=== PATIENT | female | born 1970 | race Caucasian/White ===

== ENCOUNTER → 2017-01-01 | Outpatient (CLI) | payer BC ==
[~2017-01-01] MED LIST: NLV/20 PO
[2017-01-01 14:11] VITALS: BP 124/79; PULSE 60; TEMP 36.5; O2SAT 96
--- NOTE | 2017-01-01 15:51 | Radiation Oncology Follow-Up ---
Radiation Oncology Follow-Up Date of Visit Jan 01, 2017. Reason For Visit Annual follow-up Radiation Completion Date finished 05-19-2015 Diagnosis (1) Breast cancer of lower-outer quadrant of left female breast Status: Resolved Onset Date: 01/05/2015 Histology Subtype: ductal Stage: l Permanent Comment: Abnormal left breast mammogram Status post biopsy 01/05/2015 revealing invasive ductal carcinoma Estrogen receptor positive, progesterone receptor positive, HER-2/etelvina negative Status post lumpectomy and sentinel lymph node biopsy 01/21/2015 Pathologic stage [id number] Oncotype DX score of 24 Status post completion of radiation therapy 05/19/2015 received 6120 cGy Last Edited By: Liudmila Cartagena on Jun 09, 2015 10:37 History of Present Illness Ms. Grier is a 45-year-old female without a family history of breast cancer. She has undergone screening mammograms since 2010. On 12/24/2014 a bilateral digital screening mammogram was performed. In the posterior third of the left breast within the retro-parenchymal fat and interval development of a 0.8 cm partially circumscribed nodule was appreciated. Along the anterior margin of the interval nodule are indeterminate microcalcifications spanning approximately 0.5 cm of breast tissue. No abnormalities are noted in the right breast and no axillary adenopathy was appreciated. Additional images were recommended. On 12/30/2014 the patient underwent a unilateral left digital diagnostic mammogram and targeted left ultrasound. Spot magnification views of the left breast demonstrated an irregular mass with indistinct and spiculated margins in the left lower outer quadrant posteriorly. This lesion measured approximately 1.2 x 2.0 cm mammographically. Associated punctate calcifications are seen within the mass. In addition a new oval partially circumscribed and partially obscured 1.4 cm mass was noted in the left breast at approximately 8 to 9:00 which appears stable compared to the previous study of June 2013 and June 2011. Targeted ultrasound was performed of the left lower outer quadrant. In the left breast at the 4:00 proximally 8 cm in the nipple an irregular bilobed mass versus 2 adjacent masses are noted with total extent measuring 1.6 cm in size. Targeted ultrasound of the left axilla demonstrates morphologically normal axillary lymph nodes. Targeted ultrasound of the left breast at the 8 to 9 o'clock position shows normal tissue with no mass. This was given a BI-RADS Category 5 highly suggestive of malignancy and a biopsy was recommended. On 01/05/2015 patient underwent an ultrasound core biopsy of the left breast at the 4 o'clock position. This revealed an invasive ductal carcinoma Suhail grade 2 of 3 with no lymphovascular or perineural invasion identified. Estrogen receptors were positive (99%, strong intensity, H score equal to 297). Progesterone receptor positive (4%, week intensity, H score equals 4) HER-2/etelvina overexpression is negative. The Ki-67 proliferation index is 8% (low) the tissue was evaluated by FISH analysis and was negative for HER-2/etelvina overexpression. Case: 15-S. Patient was seen by Dr. Javier Moody for discussion of surgical treatment options. The patient opted to proceed with a breast conserving therapy. Therefore on 01/24/2015 patient underwent a left breast partial mastectomy and sentinel lymph node biopsy. This confirmed an invasive ductal carcinoma, Kelly grade 2 of 3 measuring 2.0 cm. DCIS was present high-grade, solid type with comedonecrosis. No extensive DCIS or LCIS was identified. The initial margins revealed invasive carcinoma within 1 mm of the cauterized edge of the medial margin on the main specimen. No tumor is seen at the final inked medial margin on the main specimen. The invasive carcinoma is 0.7 cm in the lateral margin on the main specimen with the remaining margins all negative. Additional left lateral margin and left medial margins were taken and both were benign. A single sentinel node was identified and was negative on H&E and hawk keratin immunostain. The final stage was therefore pT1c pNo(i-) ER positive OR positive HER-2/etelvina negative. Case: . The patient was seen by Dr. Titi Cook for discussion of the role of adjuvant therapy. He recommended and ordered Oncotype DX. This was performed and the recurrence score result was 24 placing her in the middle of the intermediate risk category. Patient also underwent genetic testing and was BRCA1 and BRCA2 negative with no mutation detected. With this information the patient is returning to see Dr. Cook today. He will discuss these findings and will make a recommendation as to the potential role of systemic chemotherapy. I told the patient that if she is to receive systemic chemotherapy that we would hold radiation and start after the completion of the chemotherapy. If either he does not recommend systemic chemotherapy or the patient chooses not to receive systemic chemotherapy we would then be ready to start at any time. The patient presented today to discuss the role of radiation. Her Oncotype DX score was 24. She did not require chemotherapy. She returned to our office to undergo radiation therapy. Interim History She has been doing well over this past year. She does have occasional soreness in the breast. She describes this as a discomfort. She does not really given a pain level. It is unrelated to any particular type activities. It mainly will occur in the inframammary fold. She is careful not to wear a bra with underwire. She is up-to-date on mammography. She had a unilateral left breast digital diagnostic mammogram 07/13/2016. She is scheduled for bilateral mammography in January. She continues on tamoxifen and denies side effects. Allergies Coded Allergies: Sulfa Antibiotics (Verified Allergy, Unknown, rash, 06/07/16) NSAIDs (Verified Adverse Reaction, Unknown, BLEEDING ULCERS, 06/07/16) Home Medications Scheduled Tamoxifen Citrate (Tamoxifen Citrate), 20 MG PO DAILY Review of Systems Gastrointestinal: Symptoms: WNL Oral: Symptoms: No Problems Respiratory: Symptoms: WNL Urinary: Symptoms: WNL Skin: Symptoms: No Problems Breast: Right Upper Arm Measurement: 37.0 Right Mid Arm Measurement: 31.5 Right Wrist Measurement: 18.5 Left Upper Arm Measurement: 38.0 Left Mid Arm Measurement: 32.0 Left Wrist Measurement: 18.4 Arm Dominence: Right Patient Cosmetic Evaluation: Excellent Staff Cosmetic Evalaluation: Excellent Physical Exam Vital Signs Date Time Temp Pulse Resp B/P Pulse Ox O2 Delivery O2 Flow Rate FiO2 01/01/17 14:11 36.5 60 20 124/79 96 Pain: Side: Bilateral Pain Location: None Patient Pain Scale: 0 - 10 Initial Pain Intensity: 0.0 Additional Comments: Occaional twinges in left breast Fatigue: None General Appearance: no apparent distress Eyes: normal inspection, EOMI ENT: normal ENT inspection, hearing grossly normal Neck: no adenopathy, thyroid normal Respiratory/Chest: lungs clear, no respiratory distress, no accessory muscle use Breast: Breast examination reveals well-healed incisions of the left breast. There are no masses or tenderness and no axillary adenopathy. There are no skin retractions or nipple changes. Using the [place] score cosmesis she has an excellent outcome. The right breast showed no masses or tenderness no axillary adenopathy. Cardiovascular: regular rate, rhythm, no gallop, no murmur Extremities: no pedal edema Neurologic/Psychiatric: no motor/sensory deficits, alert, normal mood/affect Skin: warm/dry Lymphatic: no adenopathy Additional Studies UNILATERAL LEFT DIGITAL DIAGNOSTIC MAMMOGRAM 3D/2D WITH CAD AND TARGETED LEFT ULTRASOUND: 07/13/2016 CLINICAL HISTORY: History of left breast cancer status post lumpectomy, here for short interval follow-up. The patient reports that she has had intermittent pain in the left inner breast since her surgery, and at times she feels a possible lump in the region. Comparison is made to exams dated: 12/30/2015 mammogram, 12/24/2014 mammogram, mammogram, 12/30/2014 mammogram, 01/05/2015 mammogram - [facility], and 05/30/2011 mammogram - [facility]. FINDINGS: Left CC and MLO 2-D and tomosynthesis images and spot magnification left CC and LM views were obtained. There are scattered areas of fibroglandular density in the left breast. Current study was also evaluated with a Computer Aided Detection (CAD) system. There are stable postsurgical changes in the left upper outer quadrant from lumpectomy, including stable density, architectural distortion, and surgical clips at the lumpectomy bed. Spot magnification views of the lumpectomy bed demonstrate no suspicious masses or clusters of calcifications. The remainder of the left breast is stable compared to prior exams, without suspicious masses , calcifications, or areas of architectural distortion noted. 12 mm mass in the left anterior medial breast at approximately 9:00 is stable dating back to at least the 2012 exam. Targeted ultrasound was performed of the area of the possible lump and intermittent pain pointed out by the patient, involving the left lower inner quadrant but centered at approximately 7 to 8:00, 12 cm from the nipple. Sonographically normal tissue is seen in this region, without evidence of mass or other suspicious sonographic abnormality. IMPRESSION: ACR-BI-RADS CATEGORY 3: PROBABLY BENIGN, TARGETED ULTRASOUND ACR BI- RADS CATEGORY 1: NEGATIVE Stable post surgical changes in the left breast from prior lumpectomy, without mammographic evidence of malignancy in the left breast. No mammographic or sonographic abnormality noted at the site of the intermittent pain and possible lump in the left lower inner quadrant. Recommend bilateral diagnostic mammograms in 6 months, to reevaluate the left breast postsurgical changes and for routine mammography of the right breast. Also recommend clinical follow-up for left breast pain and lump. The patient has been verbally notified of the results. Approximately 10% of breast cancers are not detected with mammography. A negative mammographic report should not delay biopsy if a clinically suggestive mass is present. Haylee Valencia M.D. ah/:07/13/2016 11:48:41 Sandwich Artist: Chel WISE)(Raina), [facility] letter sent: Personal History 3 OVERALL STUDY BIRADS: 3 Probably benign Dictated by: Haylee Valencia MD Signed by: Haylee Valencia MD Assessment & Plan Plan: Continue with scheduled mammography. She'll have a bilateral digital diagnostic mammogram in January. I reviewed with her we will follow the recommendations of the radiologist as to when the next mammogram will be. Continue follow-up with Dr. Moody. We discussed the mild discomfort of the breast. His health this will steadily improve and resolve over time. I did recommend ibuprofen should this become a more persistent and uncomfortable problem. She should also call our office should she have any questions or concerns. Continue regular follow-up with her primary care physician. She also sees Dr. Cook in medical oncology. We asked her to return to our office in 1 year. Total Time In Follow-Up I spent 20 minutes speaking to the patient performing examination. I spent 15 minutes reviewing information and completing this note. Copy To Javier Moody M.D.; Funmilayo Holloway M.D.; Titi Cook M.D.
== END | disposition home or self-care (01) ==
LOC: C.ONC 13:42
PROVIDERS: ATTEND Radiology Radiation Oncology
DX: Z08 Encounter for follow-up examination after completed treatment for malignant neoplasm (principal); Z92.3 Personal history of irradiation; Z85.3 Personal history of malignant neoplasm of breast

== ENCOUNTER → 2017-01-15 | Outpatient (CLI) | payer BC ==
--- NOTE | 2017-01-15 13:03 | MAMMOGRAPHY REPORT ---
BILATERAL DIGITAL DIAGNOSTIC MAMMOGRAM TOMOSYNTHESIS WITH CAD AND TARGETED RIGHT ULTRASOUND: 01/15/20 17 CLINICAL HISTORY: 46-year-old woman with a personal history of left breast cancer diagnosed in 2014, status post lumpectomy and radiation. She presents for annual bilateral screening mammogra phy. TECHNIQUE: Bilateral CC and MLO to the digital and tomosynthesis images, spot magnification CC and M L views of each breast were obtained. Current study was also evaluated with a Computer Aided Detect ion (CAD) system. COMPARISON: Comparison is made to exams dated: 07/13/2016 ultrasound, 07/13/2016 mammogram, 12/30/2015 mammogram, 08/26/2015 mammogram, and 01/05/2015 ultrasound [facility]. BREAST COMPOSITION: There are scattered areas of fibroglandular density in both breasts. FINDINGS: There is expected architectural distortion and associated surgical clips in the upper out er posterior left breast, at the site of prior lumpectomy. There is stable focal asymmetry in the l ower inner anterior left breast, which appears similar on all prior mammograms dating back to at [facility] 05/30/2011, therefore likely benign. There are a few scattered benign round calcifications withi n the left breast. No new suspicious mass, unexpected architectural distortion or suspicious microc alcifications are identified on the left. In the middle one third of the right breast, along the posterior nipple line on the cc view, there i s a newly visualized lobulated oval mass measuring 7.5 x 4.5 mm. This is less conspicuous on the ML O view. Further characterization with ultrasound was performed. There is also a small faint cluste red microcalcifications in the upper outer middle one third of the right breast for which additional spot magnification views were obtained. On the spot magnification views this 2 mm cluster of micro calcifications appears amorphous in the CC projection and may possibly be forming a rim on the MLO v iew. Nevertheless given the interval development this is indeterminate, warranting further evaluati on with tissue sampling, given the personal history of premenopausal left breast cancer. Real-time high-resolution ultrasound was performed in the 12:00 right breast. In the 12:00 axis, 3 cm from the nipple, there is a 7.9 x 4.4 by approximately 4.0 mm multilobulated cystic appearing mas s with thin internal nonvascular septations. This most likely represents a small cyst cluster or co mplicated cyst. This correlates well with the newly visualized mammographic mass and is probably be nign although a repeat targeted ultrasound is recommended to ensure stability in 6 months and exclud e the possibility of a solid and cystic mass. IMPRESSION: ACR BI-RADS CATEGORY 4B: INTERMEDIATE SUSPICION FOR MALIGNANCY, TARGETED ULTRASOUND ACR BI-RADS CATEGORY 4B: INTERMEDIATE SUSPICION FOR MALIGNANCY 1. Right breast stereotactic guided biopsy is recommended for a new 2 mm cluster of amorphous micro calcifications in the upper outer middle one third of the breast. 2. A short interval follow-up diagnostic right mammogram and repeat targeted ultrasound in the 12:0 0 axis is recommended to ensure stability of a probable complicated cyst versus small cluster of cys ts. 3. Stable mammographic appearance of the left breast, without mammographic evidence of malignancy. Pending benign pathology results in the right breast, can follow-up the left breast in 12 months. These results and recommendations were discussed with the patient at the time of the exam. Approximately 10% of breast cancers are not detected with mammography. A negative mammographic repor t should not delay biopsy if a clinically suggestive mass is present. Patricia Lucero M.D. ay/:01/15/2017 12:39:14 Be[employer]attle Farm Worker: Silvia JUAREZ(Marianela)(Raina), [facility] letter sent: Abnormal 4/5 BI-RADS Code: ACR BI-RADS Category 4B: Intermediate Suspicion For Malignancy Ultrasound BI-RADS: AC R BI-RADS Category 4B: Intermediate Suspicion For Malignancy
== END | disposition home or self-care (01) ==
LOC: C.MAMM 08:54
PROVIDERS: ATTEND Surgery
DX: Z08 Encounter for follow-up examination after completed treatment for malignant neoplasm (principal); Z85.3 Personal history of malignant neoplasm of breast; R92.0 Mammographic microcalcification found on diagnostic imaging of breast; R92.8 Other abnormal and inconclusive findings on diagnostic imaging of breast

== ENCOUNTER → 2017-01-21 | Outpatient (CLI) | payer BC ==
--- NOTE | 2017-01-21 13:31 | Discharge Instructions ---
Discharge Instructions Procedure Procedure Date: Jan 21, 2017. Reason for visit: Right Calcifications. Discharge Discharge Date: Jan 21, 2017. Discharge Diagnosis: post right breast stereotactic guided biopsy Instructions Activity Recommendations: Additional Limitations (see below) Return to School/Work: no limitations Recommended Home Diet: No Limitations Provider Instructions: ACTIVITY RECOMMENDATIONS: * No lifting, pushing, pulling or exercising the affected side for three days. RETURN TO SCHOOL/WORK: * You may return to work/school after the procedure, but do not perform any strenuous activities for 24 to 48 hours. MEDICATIONS: * Tylenol (two 325 mg) every four to six hours if needed for mild pain (if not allergic to Tylenol). DIET: * Resume previous diet. SPECIAL CARE INSTRUCTIONS: * Keep biopsy site dry for 24 hours. May shower after 24 hours, but do not soak (bathe) incision. * May remove Tegaderm (plastic patch) tomorrow AFTER showering. * Leave the steri-strips on for one week. Allow the steri-strips to fall off by themselves. If not off after one week, you may remove them. You may place a Bandaid crosswise over the strips, if desired. * Apply ice 10 minutes on and 10 minutes off as needed. * Wear a bra at bedtime to sleep more comfortably for 2-3 days. * Your referring physician should have the results after approximately 5 to 7 business days. * Call for unusual bleeding, fever, drainage, etc or if you have any questions call [phone] during normal business hours or after hours call Dr Lucero, . FOLLOW UP VISIT: Follow-up with Referring Physician as scheduled. Allergies Coded Allergies: Sulfa Antibiotics (Verified Allergy, Unknown, rash, 06/07/16) NSAIDs (Verified Adverse Reaction, Unknown, BLEEDING ULCERS, 06/07/16) Dio Vivas Recommendations: Call your doctor if: * Temperature above 101 degrees * Pain not relieved by pain medicine ordered * There is increased drainage or redness from any incision * You have any unanswered questions or concerns. Your Doctors Instructions noted above were prepared by provider Patricia Lucero. Patient Signature Section: Patient Instructions Signature Page Claudette Grier Patient (or Guardian) Signature/Date: I have read and understand the instructions given to me by my caregivers. Caregiver/RN/Doctor Signature/Date: The above-named patient and/or guardian has received patient instructions on this date. + Original Patient Signature Page (only) stays with chart. Please make copy for patient.
--- NOTE | 2017-01-21 14:38 | MAMMOGRAPHY REPORT ---
UNILATERAL RIGHT DIGITAL DIAGNOSTIC MAMMOGRAM: 01/21/2017 CLINICAL HISTORY: Status post right breast stereotactic biopsy. Please refer to the report from right breast stereotactic biopsy performed at the same time for full detail. IMPRESSION: POST PROCEDURE IMAGING FOR MARKER PLACEMENT Please refer to the report from right breast stereotactic biopsy performed at the same time for full detail. Pending benign pathology results, a follow-up diagnostic mammogram and ultrasound of the right breas t is recommended to ensure stability in 6 months of a probable cyst cluster in the 12:00 axis. Approximately 10% of breast cancers are not detected with mammography. A negative mammographic repor t should not delay biopsy if a clinically suggestive mass is present. Patricia Lucero M.D. ay/:01/21/2017 13:37:42 Attending Technologist: Luz Maria Smith RT(R)(M), [facility] [employer] Fermentation Operator: Jacklyn Anglin RT(R)(M), [facility] BI-RADS Code: Post Procedure Imaging For Marker Placement
--- NOTE | 2017-01-21 14:38 | MAMMOGRAPHY REPORT ---
STEREOTACTIC GUIDED BIOPSY RIGHT BREAST: 01/21/2017 CLINICAL HISTORY: Microcalcifications right breast. COMPARISON: Comparison is made to exams dated: 01/15/2017 mammogram, 01/15/2017 ultrasound, 12/30/2015 mammogram, and 12/24/2014 mammogram - [facility]. PATIENT CONSENT: After explaining the risks, benefits and alternatives of the procedure to the patie nt, informed consent was obtained both verbally and in writing. Specific risks include: Bleeding, i nfection, puncture of adjacent structure, nontarget biopsy, sampling error, metal allergy and medica tion reaction. PROCEDURE DESCRIPTION: A time-out was performed and the right breast was confirmed as the site of bi opsy. The patient was placed prone on the stereotactic biopsy table and the breast was placed in lat eral compression. A assistant project manager image was obtained that demonstrated the clustered microcalcifications in question. They are amenable to sterotactic biopsy. Then +15 and -15 stereo pair images were obtai gregor. The calcifications were targeted utilizing the coordinates obtained by the computer. The skin was prepped with Betadine. 1% Lidocaine with and without epinipherine was administered as local anes thesia. A small skin incision was made. Through the incision, the needle was inserted to the depth determined by the computer. 10 samples were obtained using a [employer] Tek 9-gauge vacuum-assisted bio psy device. The specimen radiograph demonstrated several sales representative metals microcalcifications, therefo re, a metallic marker was placed at the biopsy site. There was no immediate complication. Hemostasis was achieved after several minutes of manual compression. The samples were sent to pathology in 2 appropriately labeled containers. The specimen containing the majority of the microcalcifications w ere placed into a container labeled with calcifications and the remainder of the adjacent tissue was placed into a container labeled without calcifications. All of the samples were obtained from the same single biopsy site. Postprocedure CC and ML views of the right breast demonstrate a new metallic biopsy marker and no si gnificant hematoma in the upper outer middle one third of the breast (approximate 9:00 axis). IMPRESSION: STEREOTACTIC GUIDED BIOPSY Stereotactic right breast stereotactic guided biopsy of clustered microcalcifications in the upper o uter middle one third of the breast, with biopsy marker placed at the site. Pending benign pathology results, follow-up diagnostic right mammography and repeat targeted ultraso und in the 12:00 axis is recommended to ensure stability of a probable complicated cyst seen on prev ious diagnostic ultrasound dated 01/15/2017. Patricia Lucero M.D. ay/:01/21/2017 13:56:28 Attending Technologist: Luz Maria Smith RT(R)(M), [facility] Edger Hand: Jacklyn Anglin RT(R)(M), [facility]
== END | disposition home or self-care (01) ==
LOC: C.MAMM 12:34
PROVIDERS: ATTEND Surgery
DX: R92.0 Mammographic microcalcification found on diagnostic imaging of breast (principal)

== ENCOUNTER → 2017-07-23 | Outpatient (CLI) | payer BC ==
--- NOTE | 2017-07-23 16:09 | MAMMOGRAPHY REPORT ---
UNILATERAL RIGHT DIGITAL DIAGNOSTIC MAMMOGRAM TOMOSYNTHESIS WITH CAD AND TARGETED RIGHT ULTRASOUND: CLINICAL HISTORY: 47 year old woman with a personal history of left breast cancer status post breast conservation therapy presents for follow-up in the right breast for a possible common located cyst ve rsus small cluster of cysts in the 12:00 axes. She is 6 months status post benign stereotactic biops y in the right upper outer quadrant. TECHNIQUE: Right breast tomosynthesis in addition to standard 2D mammography was performed. Current maddie perez was also evaluated with a Computer Aided Detection (CAD) system. COMPARISON: Comparison is made to exams dated: 01/21/2017 mammogram, 01/21/2017 stereotactic biopsy, ultrasound, 01/15/2017 mammogram, 07/13/2016 ultrasound, and 07/13/2016 mammogram - [facility]. BREAST COMPOSITION: There are scattered areas of fibroglandular density in the right breast. FINDINGS: There is a stable dumbbell shaped metallic biopsy marker in the upper outer middle one thir d of the right breast. There is an oval lobulated mass in the 12:00 middle one third of the right br east, which measures 7.4 x 5.1 mm, and has not significantly changed comparing to the prior mammogram at which time it measured 7.5 x 4.5 mm. No new suspicious mass, architectural distortion or suspici ous microcalcifications are identified in the right breast. Repeat targeted ultrasound was performed in the 12:00 right breast, 3 cm from the nipple. A multilob ulated predominantly cystic mass is again identified either representing a complicated cyst with nonv ascular internal septations or a small cluster of cysts. It measures 4.9 x 4.5 x 7.8 mm, previously measured 7.9 x 4.4 x 4.0 mm. This has not significantly changed. Another six-month follow-up target ed ultrasound is recommended to ensure longer stability. IMPRESSION: ACR-BI-RADS CATEGORY 3: PROBABLY BENIGN, TARGETED ULTRASOUND ACR-BI-RADS CATEGORY 3: PRO BABLY BENIGN Stable mammographic appearance of the right breast including stable post biopsy changes in the upper outer quadrant, and a stable lobulated oval mass in the 12:00 axis both mammographically and sonograp hically. This could represent a complicated cyst or small cysts cluster, however given it was new on the prior exam another six-month follow-up right diagnostic mammogram including tomosynthesis images and repeat targeted ultrasound is recommended in 6 months. Annual left mammography will be due at t hat time. Approximately 10% of breast cancers are not detected with mammography. A negative mammographic report should not delay biopsy if a clinically suggestive mass is present. Patricia Lucero M.D. ay/:07/23/2017 08:54:45 Mayonnaise Mixer: Silvia JUAREZ(Marianela)(Raina), letter sent: Follow Up Recommended 3 BI-RADS Code: ACR-BI-RADS Category 3: Probably Benign Ultrasound BI-RADS: ACR-BI-RADS Category 3: Pr obably Benign
== END | disposition home or self-care (01) ==
LOC: C.MAMM 08:23
PROVIDERS: ATTEND Surgery
DX: N63 Unspecified lump in breast (principal); Z85.3 Personal history of malignant neoplasm of breast; Z08 Encounter for follow-up examination after completed treatment for malignant neoplasm

== ENCOUNTER → 2018-01-27 | Outpatient (CLI) | payer BC ==
--- NOTE | 2018-01-27 15:41 | MAMMOGRAPHY REPORT ---
BILATERAL DIGITAL DIAGNOSTIC MAMMOGRAM TOMOSYNTHESIS WITH CAD AND TARGETED RIGHT ULTRASOUND: 01/27/2018 CLINICAL HISTORY: 47-year-old woman with a personal history of left breast cancer status post breast conservation treatment, with lumpectomy performed in December 2014. She presents at time of annual b ilateral screening exam and also for a close follow-up of a benign-appearing right breast mass. TECHNIQUE: Bilateral breast tomosynthesis in addition to standard 2D mammography was performed. Curre nt study was also evaluated with a Computer Aided Detection (CAD) system. COMPARISON: Comparison is made to exams dated: 07/23/2017 ultrasound, 07/23/2017 mammogram, 01/21/2017 mammogram, 01/21/2017 stereotactic biopsy, 01/15/2017 mammogram, and 12/30/2015 mammogram - [facility]. BREAST COMPOSITION: There are scattered areas of fibroglandular density in both breasts. FINDINGS: There is expected architectural distortion and surgical clips in the upper outer posterior left breast, at the site of prior lumpectomy. A stable 13 mm focal asymmetry in the lower inner ante rior left breast has been present and appears similar dating back to at least 05/30/2011, therefore con sidered benign. There are a few scattered benign-appearing round microcalcifications in the left cooper ast. No new suspicious mass, architectural distortion or cluster of microcalcifications is seen in t he left breast. There is a stable dumbbell-shaped biopsy marker clip in the upper outer middle one third of the right breast, denoting the site of prior benign stereotactic biopsy. An oval circumscribed 8.1 x 5.1 mm m ass in the upper outer middle one third of the right breast is stable in size dating back to at least 01/15/2017. No new suspicious masses, calcifications, areas of architectural distortion or asymmetri es are seen in the right breast. Targeted ultrasound was performed in the right breast to reevaluate the probable cyst cluster identif ied on prior ultrasounds. In the 12:00 right breast, 3 cm from the nipple, a small grouping of hypoe choic to anechoic cyst is again identified, measuring 5.5 x 4.6 x 8.2 mm. Given slight differences i n measurement technique, this is unchanged dating back to at least January 15, 2017 and most likely represent a cyst cluster. Another 12 month follow-up targeted ultrasound is recommended to document at least 2 years of stability to confirm benignity. IMPRESSION: ACR-BI-RADS CATEGORY 3: PROBABLY BENIGN, TARGETED ULTRASOUND ACR-BI-RADS CATEGORY 3: PRO BABLY BENIGN 1. Stable bilateral mammograms including posttreatment changes in the left breast, postbiopsy change s in the right breast and a benign-appearing oval circumscribed 8 x 5 mm mass in the approximate 12:0 0 right breast. Another 12 month follow-up diagnostic mammogram including repeat targeted ultrasound in the right breast is recommended to ensure at least 2 years of stability to confirm benignity. An nual bilateral mammography will also be due at that time. Also consider remaining a diagnostic patie nt in the future, given the personal history of left breast cancer. These results and recommendations were discussed with the patient at the time of the exam. Approximately 10% of breast cancers are not detected with mammography. A negative mammographic report should not delay biopsy if a clinically suggestive mass is present. Patricia Lucero M.D. ay/:01/27/2018 11:26:37 Supervisor Rod Placing: Jacklyn JUAREZ(Marianela)(M), [facility] letter sent: Follow Up Recommended 3 BI-RADS Code: ACR-BI-RADS Category 3: Probably Benign Ultrasound BI-RADS: ACR-BI-RADS Category 3: Pr obably Benign
== END | disposition home or self-care (01) ==
LOC: C.MAMM 08:59
PROVIDERS: ATTEND Family Medicine
DX: N63.10 Unspecified lump in the right breast, unspecified quadrant (principal); Z85.3 Personal history of malignant neoplasm of breast